=== PATIENT | female | born 1980 ===

== ENCOUNTER 2017-09-17 11:08 | Emergency (ER) | payer OTHER ==
[2017-09-17 11:15] VITALS: BP 132/80; RESP 16; TEMP 98.5; O2SAT 100; BMI 24.6
--- NOTE | 2017-09-17 11:45 | ED PDOC ---
HPI: Chest Pain Time Seen by Provider: 09/17/17 11:23 Chief Complaint (Nursing): Anxiety Chief Complaint (Provider): Chest pain History Per: Patient, [employer]er (Sammi [id number]) History/Exam Limitations: no limitations Onset/Duration Of Symptoms: Hrs Current Symptoms Are (Timing): Gone Now Additional Complaint(s): 36yo female with no past medical history, presents to ED with complaints of left sided chest pain radiating to her breast. Patient states she was hunching over and writing something and when she went to stretch, she felt the pain. Patient states she "loosened her bra" with relief of pain; also states deep inspiration helps with her pain. Patient states the pain is currently resolved. She denies any symptoms of anxiety or panic attacks. She denies any cough, fever , chills, and offers no other medical complaints. Past Medical History Reviewed: Historical Data, Nursing Documentation, Vital Signs Vital Signs: Last Vital Signs Temp 98.5 F 09/17/17 11:14 Pulse 61 09/17/17 13:22 Resp 16 09/17/17 11:14 BP 132/80 09/17/17 11:14 Pulse Ox 100 09/17/17 13:22 - Medical History PMH: No Chronic Diseases - Surgical History Surgical History: No Surg Hx - Family History Family History: States: No Known Family Hx - Home Medications Home Medications: Ambulatory Orders Medication Instructions Recorded Naproxen [Naprosyn] 500 mg PO BID #20 tablet 09/17/17 - Allergies Allergies/Adverse Reactions: Allergies Allergy/AdvReac Type Severity Reaction Status Date / Time No Known Allergies Allergy Verified 09/17/17 11:38 Review of Systems ROS Statement: Except As Marked, All Systems Reviewed And Found Negative Constitutional: Negative for: Fever, Chills Cardiovascular: Positive for: Chest Pain Respiratory: Negative for: Shortness of Breath Physical Exam - Reviewed Nursing Documentation Reviewed: Yes Vital Signs Reviewed: Yes - Physical Exam Appears: Positive for: Non-toxic, No Acute Distress Head Exam: Positive for: ATRAUMATIC, NORMAL INSPECTION, NORMOCEPHALIC Skin: Positive for: Normal Color Eye Exam: Positive for: Normal appearance Neck: Positive for: Supple Cardiovascular/Chest: Positive for: Regular Rate, Rhythm. Negative for: Chest Non Tender (+reproducible chest wall tenderness, pain also reproduced with twisting of trunk), Murmur, Ectopy, Friction Rub Respiratory: Positive for: Normal Breath Sounds. Negative for: Wheezing Gastrointestinal/Abdominal: Positive for: Normal Exam, Soft Extremity: Positive for: Normal ROM Neurologic/Psych: Positive for: Alert, Oriented. Negative for: Motor/Sensory Deficits - Laboratory Results Result Diagrams: 09/17/17 12:35 09/17/17 12:35 - ECG ECG: Positive for: Interpreted By Me, Viewed By Me ECG Rhythm: Positive for: Sinus Rhythm. Negative for: ST/T Changes Interpretation Of ECG: Normal intervals Rate: 61 O2 Sat by Pulse Oximetry: 100 (RA) Pulse Ox Interpretation: Normal Medical Decision Making Medical Decision Making: Impression: Atypical chest pain, likely musculoskeletal Plan: -- EKG -- Labs -- Chest x-ray Time: 1320 Preliminary labs including troponin all within normal limits. Patient is a low PE risk per PERC criteria. Diagnosis: Chest wall pain Scribe Attestation: Documented by Bindu Farr acting as a scribe for Haylee Goodwin MD. Provider Attestation: All medical record entries made by the Scribe were at my direction and personally dictated by me. I have reviewed the chart and agree that the record accurately reflects my personal performance of the history, physical exam, medical decision making, and the department course for this patient. I have also personally directed, reviewed, and agree with the discharge instructions and disposition. Disposition - Clinical Impression Clinical Impression: Chest wall pain - Disposition Referrals: [facility] [Outside] Disposition: Routine/Home Disposition Time: 19:26 Condition: GOOD Prescriptions: Naproxen [Naprosyn] 500 mg PO BID #20 tablet Instructions: Costochondritis, Chest Pain That Is Not Caused by the Heart (DC) Forms: [employer] (Faroese) Print Language: PORTUGUESE
[2017-09-17 11:51] VITALS: PULSE 61
--- NOTE | 2017-09-17 12:36 | RAD ---
PROCEDURE: CHEST RADIOGRAPH, 1 VIEW HISTORY: chest pain COMPARISON: None available. FINDINGS: LUNGS: Clear. PLEURA: No pneumothorax or pleural fluid seen. CARDIOVASCULAR: Normal. OSSEOUS STRUCTURES: No significant abnormalities. VISUALIZED UPPER ABDOMEN: Normal. OTHER FINDINGS: None. IMPRESSION: No active disease.
[2017-09-17] MEDS ORDERED: Naproxen 500 MG TAB PO ONE (12:44)
[2017-09-17 12:46] LABS: BASO % 0.3 % (0.0-2.0); EOS # 0.1 K/uL (0.0-0.7); EOS % 3.3 % (0.0-4.0); HEMOGLOBIN 12.9 g/dL (12.0-16.0); LYMPH % 44.7 % (20.0-40.0); MEAN CELL VOLUME 95.9 fl (81.0-99.0); MEAN CORPUSCULAR HEMOGLOBIN 32.7 pg (27.0-31.0); MEAN CORPUSCULAR HGB CONC 34.1 g/dL (33.0-37.0); MEAN PLATELET VOLUME 6.9 fl (7.2-11.7); MONO # 0.3 K/uL (0.0-0.8); NEUT % 44.7 % (50.0-75.0); NRBC % 0.4 % (0.0-0.0); RBC 3.93 Mil/uL (3.80-5.20); RED CELL DISTRIBUTION WIDTH 13.7 % (11.5-14.5); WHITE BLOOD COUNT 4.4 K/uL (4.8-10.8)
[2017-09-17] MEDS ORDERED: Naproxen 500 MG TAB PO STA (12:48)
[2017-09-17 13:07] LABS: ALB/GLOB RATIO 1.3 (1.0-2.1); ALT/SGPT 32 U/L (9-52); AST/SGOT 22 U/L (14-36); BLOOD UREA NITROGEN 11 mg/dl (7-17); CALCIUM 8.9 mg/dL (8.4-10.2); GFR AFRICAN-AMERICAN > 60; GFR NON-AFRICAN AMERICAN > 60
--- NOTE | 2017-09-17 14:47 | CARD ---
APPROVED REPORT EKG Measurement Heart [id number] <Conclusion> Normal sinus rhythm Normal ECG
== END 2017-09-17 13:15 | disposition home or self-care (01) ==
LOC: H.ER 11:08
DX: R07.89 Other chest pain (principal); F41.9 Anxiety disorder, unspecified